=== PATIENT | male | born 1955 | race Caucasian/White ===

== ENCOUNTER → 2025-03-24 | Outpatient (CLI) | payer MEDICARE, OTHER, SELFPAY ==
--- NOTE | 2025-03-24 11:12 | US_ITS ---
PROCEDURE: THYROID 03/24/2025 REASON FOR EXAM: MULTIPLE THYROID NODULES TECHNIQUE: Procedure Code: USTHY Modality: US Procedure: THYROID COMPARISON: None available for review. FINDINGS: Transcutaneous 2-D grayscale and color Doppler ultrasound of the thyroid gland was performed. MEASUREMENTS: Right lobe: 5.7 x 2.4 x 2.1 cm. Left lobe: 5.1 x 1.9 x 1.8 cm. Isthmus: 3 mm. RIGHT SIDE: Homogeneous echotexture. The interpolar right thyroid contains a large calcification measuring 1.2 x 1 x 0.8 cm. (TR 4) The interpolar right thyroid contains a large calcification measuring 1.3 x 1.2 x 1.1 cm. (TR 4) LEFT SIDE: Homogeneous echotexture. The interpolar left thyroid contains a large calcification measuring 0.5 x 0.3 x 0.2 cm. (TR 4) ISTHMUS: No evidence of nodule or mass. Normal vascularity without microcalcification. No enlarged lymph nodes within the visualized neck. US/Thyroid IMPRESSION: Multinodular thyroid. TI-RADS 4, MODERATELY SUSPICIOUS. RECOMMENDATIONS: Recommend repeat ultrasound in one year as these nodules do not currently meet size criteria for image guided fine needle aspiration. ACR TI-RADS Guidelines TI RADS 1 - Benign; No FNA TI RADS 2- Not Suspicious; No FNA TI RADS 3- Mildly Suspicious; FNA if >2.5cm or Follow if >1.5cm at 1, 3 and 5 y ears. TI RADS 4- Moderately Suspicious; FNA if >1.5cm or Follow if >1cm at 1, 2, 3 an d 5 years. TI RADS 5- Highly suspicious; FNA if >1cm or Follow if >0.5cm yearly for up to 5 years. ly Reference: Emanuel FN, Yaya WD, Crow EG et al. ACR Thyroid Imaging, Repor ting and Data System (TI-RADS): White Paper of the ACR TI-RADS Committee. Felix Am Reading Location: [id number]
== END | disposition home or self-care (01) ==
LOC: PSN 09:45
PROVIDERS: PCP Internal Medicine; Referring Provider Internal Medicine; Visit Provider Internal Medicine
DX: R94.2 Abnormal results of pulmonary function studies (principal); E04.2 Nontoxic multinodular goiter
CPT/HCPCS: 76536; 94060; 94726; 94729

== ENCOUNTER → 2025-05-01 | Outpatient (CLI) | payer MEDICARE, OTHER, SELFPAY ==
--- NOTE | 2025-05-01 10:15 | RAD_ITS ---
PROCEDURE: ESOPHAGUS DUAL CONTRAST 05/01/2025 REASON FOR EXAM: DYSPHAGIA TECHNIQUE: Single and double contrast esophagram. FLUOROSCOPIC TIME: 118 seconds. Dose: 26.56 mGy. COMPARISON: None. FINDINGS: A very small sliding-type hiatal hernia is seen. No area of focal esophageal abnormality or persistent narrowing is seen. Intermittent mild mid to distal esophageal spasm is seen. During the time of imaging, gastroesophageal reflux was not seen. Limited imaging of the stomach and duodenum show no abnormality. RAD/Esophagus Dual Contrast IMPRESSION: 1. Very small sliding-type hiatal hernia. 2. Mild intermittent mid to distal esophageal spasm. Reading Location: [place] [id number]
== END | disposition home or self-care (01) ==
PROVIDERS: PCP Internal Medicine; Referring Provider Internal Medicine; Visit Provider Internal Medicine
DX: K22.4 Dyskinesia of esophagus (principal); K44.9 Diaphragmatic hernia without obstruction or gangrene
CPT/HCPCS: 74221